=== PATIENT | male | born 1975 | race African-American/Black ===

== ENCOUNTER 2024-02-05 11:31 | Emergency (ER) | payer OTHER ==
[~2024-02-05] VITALS: Ht 180.3 cm; Wt 86.2 kg
[2024-02-05 11:56] VITALS: TEMP 97.8
[2024-02-05] MEDS ORDERED: IBUPROFEN200 MG PO (12:47)
[2024-02-05] MEDS ORDERED: ZANAFLEX4 MG PO (12:47)
[2024-02-05] MEDS ORDERED: PREDNISONE50 MG PO (12:47)
[2024-02-05 12:55] VITALS: PULSE 58; RESP 18; O2SAT 98
== END 2024-02-05 12:55 | disposition home or self-care (01) ==
LOC: FSED 11:35
DX: M54.50 Low back pain, unspecified (principal); I10 Essential (primary) hypertension
CPT/HCPCS: 74176; 81003; 99283